=== PATIENT | female | born 1965 | race Caucasian/White ===

== ENCOUNTER → 2017-05-07 | Outpatient (CLI) | payer OTHER ==
--- NOTE | 2017-05-11 14:24 | PCVCIMAG ---
APPROVED REPORT Exam: Stress Echocardiogram Indication: Atrial Fibrillation, Dyspnea , Palpitations Patient Location: Echo lab Stress Nurse: Diane Baca RN Status: routine Ht: 5 ft 2 in HR: 61 bpm BP: 110/72 mmHg Rhythm: NSR Medical History Medical History: Atrial Fibrillation Procedure The patient underwent an Exercise Stress Test using the Tino Protocol. Blood pressure, heart rate, and EKG were monitored. An Echocardiogram was performed by oil refinery process technician in four stages in quad fashion. At peak stress, four selected images were obtained and placed side by side with resting images for comparison. Stress Test Details Stress Test: Exercise stress testing was performed using a Tino protocol. HR Resting HR: 61 bpmMax Heart Rate (APMHR): 167 bpm Max HR Achieved: 150 bpmTarget HR (85% APMHR): 141 bpm % of APMHR: 89 Recovery HR: 82 bpm HR response to stress: Normal HR response to stress BP Resting BP: 110/72 mmHg Max BP: 140/60 mmHg Recovery BP: 114/66 mmHg ECG Resting ECG: Sinus Rhythm Stress ECG: Sinus Rhythm ST Change: Normal Arrhythmia: Occasional isolated PVCs Recovery ECG: Sinus Rhythm Recovery ST Change: Normal Recovery Arrhythmia: None Clinical Reason for Termination: Maximal effort Stress Symptoms: Dyspnea Exercise duration: 11 min 49 sec Highest Stage Achieved: Stage 4: 4.2 mph at 16% grade. Exercise capacity: 13.4 METs Overall Exercise Capacity for Age: Good Scale: Active Stress ECG Conclusion 1. SUBJECTIVELY NEGATIVE FOR ISCHEMIA 2. ELECTROCARDIOGRAPHICALLY NEGATIVE FOR ISCHEMIA 3. SATISFACTORY FUNCTIONAL CAPACITY Pre-Stress Echo The resting Echocardiogram showed normal left ventricular contractility with an estimated Ejection Fraction of about >55%. Normal wall motion in all segments on baseline images. MILD MITRAL REGURGITATION Post-Stress Echo The stress Echocardiogram showed normal left ventricular contractility with an estimated Ejection Fraction of about 65-70%. Normal augmentation of wall motion in all segments on post stress images. Clinical No clinical or ECG evidence for ischemia. Conclusion Clinical Response: Non-ischemic Exercise Capacity: Superior Stress ECG Response: Non-ischemic Stress Echo Images: Non-ischemic The left ventricle is normal in size and wall thickness in both the rest and stress images. 1. LOW RISK STUDY Other Information Study Quality: Adequate <Conclusion> The left ventricle is normal in size and wall thickness in both the rest and stress images. 1. LOW RISK STUDY
== END | disposition home or self-care (01) ==
LOC: PCVCIMAG 16:20
PROVIDERS: ATTEND Internal Medicine
DX: I48.91 Unspecified atrial fibrillation (principal); I49.3 Ventricular premature depolarization
CPT/HCPCS: 93325; 93351